=== PATIENT | female | born 1945 | race Caucasian/White ===

== ENCOUNTER → 2019-10-07 | Outpatient (CLI) | payer MEDICARE, OTHER | LOC: M.CT 13:23 | DX: M84.361A Stress fracture, right tibia, initial encounter for fracture (principal); X58.XXXA Exposure to other specified factors, initial encounter; Y93.89 Activity, other specified; Y92.89 Other specified places as the place of occurrence of the external cause; Y99.8 Other external cause status; I70.0 Atherosclerosis of aorta; M71.21 Synovial cyst of popliteal space [Baker], right knee ==